=== PATIENT | male | born 1975 | race Caucasian/White ===

== ENCOUNTER 2018-02-05 14:51 | Inpatient (IN) | payer OTHER ==
[~2018-02-05] VITALS: Ht 167.6 cm; Wt 55.8 kg
[2018-02-05 16:04] LABS: BASO % 0.2 % (0.0-2.0); EOS % 0.5 % (0-4.0); GRAN # 2.3 (1.4-6.5); HEMOGLOBIN 10.7 g/dl (13.5-18.0); LYMPH # 0.8 (1.2-3.4); MEAN CELL VOLUME 99 fl (80.0-100.0); MEAN CORPUSCULAR HEMOGLOBIN 34 pg (27.0-31.0); MEAN CORPUSCULAR HGB CONC 34 g/dl (33.0-37.0); MONO % 23.6 % (1.7-9.3); PLATELET COUNT 295 K/mm3 (130-400); RED BLOOD COUNT 3.16 M/mm3 (4.20-5.60); REDCELL DISTRIBUTION WIDTH-CV 12.1 % (11.5-14.5)
[2018-02-05 16:05] LABS: HEMATOCRIT 31.4 % (42.0-52.0)
[2018-02-05 16:16] LABS: ALANINE AMINOTRANSFERASE 75 U/L (21-72); ALBUMIN 3.8 gm/dL (3.5-5.0); ALKALINE PHOSPHATASE 102 U/L (50-136); ANION GAP 6 mmol/L (7-16); AST,SGOT 114 U/L (15-37); BILIRUBIN,TOTAL 0.9 mg/dL (0.0-1.0); BLOOD UREA NITROGEN 11 mg/dL (9-20); CALCIUM 9.9 mg/dL (8.4-10.2); CARBON DIOXIDE 33 mmol/L (22-30); CHLORIDE 98 mmol/L (98-107); CREATININE, serum 0.53 mg/dL (0.66-1.25); GLUCOSE 101 mg/dL (74-106); SODIUM 137 mmol/L (137-145); TOTAL PROTEIN 7.4 gm/dL (6.4-8.2)
[2018-02-05 16:17] LABS: ALCOHOL(ethanol),MEDICAL < 10 mg/dL
[2018-02-05 17:14] LABS: COLLECTION METHOD CLEAN CATCH
[2018-02-05 17:24] LABS: MUCOUS Present /lpf; PH 5 (5-8); SQUAMOUS EPITHELIAL 0-2 /hpf; URINE APPEARANCE Hazy; URINE BACTERIA None Seen /hpf; URINE BILIRUBIN Positive (NEGATIVE); URINE BLOOD Negative (NEGATIVE); URINE COLOR Amber; URINE GLUCOSE Negative (NEGATIVE); URINE KETONE Trace (NEGATIVE); URINE LEUKOCYTE ESTERASE Negative (NEGATIVE); URINE NITRATE Negative (NEGATIVE); URINE PROTEIN(semi-quant) 1+ (NEGATIVE); URINE UROBILINOGEN >=4.0 mg/dL (NEGATIVE)
[2018-02-05 17:45] LABS: TRICYCLIC ANTIDEPRESS URINE NEGATIVE
[2018-02-05 19:59] VITALS: BP 122/82; PULSE 75; TEMP 99.1
[2018-02-05 21:14] LABS: ALBUMIN 3.5 gm/dL (3.5-5.0); BILIRUBIN UNCONJUGATED 0.4 mg/dL (0.0-1.1); BILIRUBIN,DIRECT 0.3 mg/dL (0.0-0.4); BILIRUBIN,TOTAL 0.6 mg/dL (0.0-1.0); TOTAL PROTEIN 6.9 gm/dL (6.4-8.2)
[2018-02-05 21:17] LABS: PROTHROMBIN TIME 10.8 SECONDS (9.7-12.8)
[2018-02-05 21:20] LABS: PARTIAL THROMBOPLASTIN TIME 27.6 SECONDS (26.0-37.0)
[2018-02-05 22:57] LABS: HIV 1/2 Antibodies Non-Reactive; HIV-1p24 Antigen Non-Reactive
[2018-02-06 03:37] VITALS: BP 116/76; PULSE 82; TEMP 98.7
[2018-02-06 06:20] LABS: MEAN CELL VOLUME 102 fl (80.0-100.0); MEAN CORPUSCULAR HGB CONC 34 g/dl (33.0-37.0); MEAN PLATELET VOLUME 10.1 fl (7.4-10.4); PLATELET COUNT 297 K/mm3 (130-400); RED BLOOD COUNT 2.56 M/mm3 (4.20-5.60); REDCELL DISTRIBUTION WIDTH-CV 12.5 % (11.5-14.5); RETIC % 3.8 % (0.5-3.52)
[2018-02-06 06:22] LABS: ALBUMIN 2.8 gm/dL (3.5-5.0); BILIRUBIN,TOTAL 0.5 mg/dL (0.0-1.0); CALCIUM 8.7 mg/dL (8.4-10.2); CREATININE, serum 0.52 mg/dL (0.66-1.25); POTASSIUM 3.2 mmol/L (3.4-5.0); TOTAL PROTEIN 5.8 gm/dL (6.4-8.2)
[2018-02-06 06:26] LABS: HEMATOCRIT 26.2 % (42.0-52.0); HEMOGLOBIN 8.8 g/dl (13.5-18.0); MEAN CORPUSCULAR HEMOGLOBIN 34 pg (27.0-31.0)
[2018-02-06 07:08] LABS: BAND 7 % (0-10); EOSINOPHIL 1 % (0-4); LYMPHOCYTE 36 % (20.0-51.0); NEUTROPHILS 46 % (42.0-75.2); PLATELET ESTIMATE NORMAL (NORMAL)
[2018-02-06 07:28] VITALS: BP 124/85; PULSE 87; TEMP 99.1
[2018-02-06 13:13] VITALS: BP 131/83; PULSE 62; TEMP 99.5
[2018-02-06 15:36] LABS: GLUCOSE,CSF 62 mg/dL (40-70); TOTAL PROTEIN,CSF 46 mg/dL (15-45)
[2018-02-06 15:50] VITALS: BP 152/90; PULSE 85; TEMP 98.6
[2018-02-06 16:03] LABS: CSF APPEARANCE CLEAR; CSF COLOR COLORLESS; CSF MONONUCLEAR 40 % (70-100); CSF POLYMORPHONUCLEAR 60 % (0-6); CSF RBC 156 /mm3 (0-0)
[2018-02-06 21:37] VITALS: BP 119/68; PULSE 79; TEMP 98.5
[2018-02-07] VITALS (7 sets, daily range): BP systolic 114–140; BP diastolic 73–82; PULSE 66–93; TEMP 94.2–98.9
[2018-02-07 06:59] LABS: RED BLOOD COUNT 2.63 M/mm3 (4.20-5.60)
[2018-02-07 07:00] LABS: BASO % 0.6 % (0.0-2.0); EOS # 0.1 (0.0-0.7); EOS % 1.2 % (0-4.0); GRAN # 2.2 (1.4-6.5); GRAN % 45.9 % (42.2-75.2); LYMPH # 1.3 (1.2-3.4); LYMPH % 26.9 % (20.0-51.0); MEAN CELL VOLUME 104 fl (80.0-100.0); MEAN CORPUSCULAR HGB CONC 33 g/dl (33.0-37.0); MEAN PLATELET VOLUME 9.5 fl (7.4-10.4); MONO # 1.2 (0.1-0.6); MONO % 24.8 % (1.7-9.3); PLATELET COUNT 361 K/mm3 (130-400); REDCELL DISTRIBUTION WIDTH-CV 13.2 % (11.5-14.5)
[2018-02-07 07:04] LABS: HEMATOCRIT 27.4 % (42.0-52.0); MEAN CORPUSCULAR HEMOGLOBIN 34 pg (27.0-31.0)
[2018-02-07 07:17] LABS: ALBUMIN 2.9 gm/dL (3.5-5.0); BILIRUBIN,TOTAL 0.3 mg/dL (0.0-1.0); CALCIUM 8.2 mg/dL (8.4-10.2); CREATININE, serum 0.55 mg/dL (0.66-1.25); MAGNESIUM 1.8 mg/dL (1.6-2.3); POTASSIUM 4.3 mmol/L (3.4-5.0); TOTAL PROTEIN 5.8 gm/dL (6.4-8.2)
[2018-02-07 09:56] LABS: FOLATE (FOLIC ACID) >20.0 ng/mL (7.0-31.4)
[2018-02-08 04:13] VITALS: BP 135/80; PULSE 60; TEMP 98.6
[2018-02-08 06:26] LABS: BASO % 0.6 % (0.0-2.0); EOS # 0.1 (0.0-0.7); EOS % 1.1 % (0-4.0); GRAN # 2.9 (1.4-6.5); GRAN % 52.8 % (42.2-75.2); LYMPH # 1.2 (1.2-3.4); MEAN CELL VOLUME 106 fl (80.0-100.0); MEAN CORPUSCULAR HGB CONC 32 g/dl (33.0-37.0); MEAN PLATELET VOLUME 9.4 fl (7.4-10.4); MONO # 1.2 (0.1-0.6); MONO % 22.4 % (1.7-9.3); PLATELET COUNT 387 K/mm3 (130-400); RED BLOOD COUNT 2.69 M/mm3 (4.20-5.60); REDCELL DISTRIBUTION WIDTH-CV 13.8 % (11.5-14.5)
[2018-02-08 06:30] LABS: CREATININE, serum 0.62 mg/dL (0.66-1.25); POTASSIUM 4.3 mmol/L (3.4-5.0)
[2018-02-08 06:42] LABS: HEMATOCRIT 28.4 % (42.0-52.0); HEMOGLOBIN 9.2 g/dl (13.5-18.0); MEAN CORPUSCULAR HEMOGLOBIN 34 pg (27.0-31.0)
[2018-02-08] MEDS ORDERED: FOLIC ACID 11 MG/TA1 PO (07:39)
[2018-02-08] MEDS ORDERED: THIAMINE 1100 MG/TAB PO (07:39)
[2018-02-08] MEDS ORDERED: MULTI VITAMINS1 TAB PO (07:40)
[2018-02-08 07:56] VITALS: BP 124/74; PULSE 66; TEMP 98.7
[2018-02-08] MEDS ORDERED: PENICILLIN IV (09:50)
== END 2018-02-08 12:06 | disposition swing bed (61) | DRG 56 ==
LOC: COL.ER 14:51 → MEDICAL 17:56
PROVIDERS: Family Medicine; Hospitalist; Nurse Practitioner; Physician Assistant
PROC: 009U3ZX Drainage of Spinal Canal, Percutaneous Approach, Diagnostic (ICD-10-PCS; principal; 2018-02-06)
PROC: B01B1ZZ Fluoroscopy of Spinal Cord using Low Osmolar Contrast (ICD-10-PCS; 2018-02-06)
DX: A52.3 Neurosyphilis, unspecified (principal); E43 Unspecified severe protein-calorie malnutrition; R74.0 Nonspecific elevation of levels of transaminase and lactic acid dehydrogenase [LDH]; E87.6 Hypokalemia; F10.20 Alcohol dependence, uncomplicated; G62.1 Alcoholic polyneuropathy; E83.42 Hypomagnesemia; D53.9 Nutritional anemia, unspecified; R53.81 Other malaise; M51.26 Other intervertebral disc displacement, lumbar region; Z91.81 History of falling; D72.819 Decreased white blood cell count, unspecified; M48.061 Spinal stenosis, lumbar region without neurogenic claudication; Z72.51 High risk heterosexual behavior
CPT/HCPCS: 86780; 99223-AI; 99233-AI; 99239; A9585; G8978-GP; G8979-GP; G8987-GO; G8988-GO; J1644; J2540; J3411; J3475; J7030; J7040; J7120

== ENCOUNTER → 2018-02-25 | Outpatient (REF) ==
[~2018-02-25] MED LIST: FOLIC ACID 11 MG/TA1 PO; MULTI VITAMINS1 TAB PO; PENICILLIN IV; THIAMINE 1100 MG/TAB PO
== END ==
LOC: ZLAB.WCH 08:33
DX: Z01.89 Encounter for other specified special examinations (principal)

== ENCOUNTER → 2018-04-16 | Outpatient (CLI) | payer OTHER ==
[2018-04-16 13:46] LABS: HEMATOCRIT 37.7 % (42.0-52.0); HEMOGLOBIN 12.7 g/dl (13.5-18.0); MEAN CELL VOLUME 94 fl (80.0-100.0); MEAN CORPUSCULAR HEMOGLOBIN 32 pg (27.0-31.0); MEAN CORPUSCULAR HGB CONC 34 g/dl (33.0-37.0); MEAN PLATELET VOLUME 9.3 fl (7.4-10.4); PLATELET COUNT 248 K/mm3 (130-400); REDCELL DISTRIBUTION WIDTH-CV 12.2 % (11.5-14.5)
[2018-04-16 13:58] LABS: BILIRUBIN,TOTAL 0.2 mg/dL (0.0-1.0); CALCIUM 9.1 mg/dL (8.4-10.2); CREATININE, serum 0.76 mg/dL (0.66-1.25); POTASSIUM 4.5 mmol/L (3.4-5.0); TOTAL PROTEIN 7.4 gm/dL (6.4-8.2)
== END ==
LOC: COL.LAB 13:13
PROVIDERS: Internal Medicine
DX: E46 Unspecified protein-calorie malnutrition (principal); A53.9 Syphilis, unspecified

== ENCOUNTER 2018-04-27 13:52 | Inpatient (IN) | payer OTHER ==
[~2018-04-27] VITALS: Ht 182.9 cm; Wt 64.7 kg
[2018-04-27 14:27] LABS: BASO % 0.1 % (0.0-2.0); EOS % 0.1 % (0-4.0); GRAN # 12.1 (1.4-6.5); GRAN % 87.3 % (42.2-75.2); HEMATOCRIT 47.8 % (42.0-52.0); HEMOGLOBIN 16.1 g/dl (13.5-18.0); LYMPH # 0.6 (1.2-3.4); LYMPH % 4.3 % (20.0-51.0); MEAN CELL VOLUME 92 fl (80.0-100.0); MEAN CORPUSCULAR HEMOGLOBIN 31 pg (27.0-31.0); MEAN CORPUSCULAR HGB CONC 34 g/dl (33.0-37.0); MEAN PLATELET VOLUME 9.4 fl (7.4-10.4); MONO # 1.1 (0.1-0.6); MONO % 7.9 % (1.7-9.3); PLATELET COUNT 215 K/mm3 (130-400); RED BLOOD COUNT 5.19 M/mm3 (4.20-5.60); REDCELL DISTRIBUTION WIDTH-CV 12.6 % (11.5-14.5)
[2018-04-27 14:38] LABS: ALANINE AMINOTRANSFERASE 75 U/L (21-72); ALBUMIN 5.4 gm/dL (3.5-5.0); ALKALINE PHOSPHATASE 108 U/L (50-136); ANION GAP 34 mmol/L (7-16); AST,SGOT 84 U/L (15-37); BILIRUBIN,TOTAL 1.7 mg/dL (0.0-1.0); BLOOD UREA NITROGEN 40 mg/dL (9-20); CALCIUM 10.4 mg/dL (8.4-10.2); CARBON DIOXIDE 18 mmol/L (22-30); CREATININE, serum 2.19 mg/dL (0.66-1.25); GLUCOSE 160 mg/dL (74-106); LIPASE 109 U/L (23-300); POTASSIUM 4.7 mmol/L (3.4-5.0); SODIUM 138 mmol/L (137-145); TOTAL PROTEIN 10.4 gm/dL (6.4-8.2)
[2018-04-27 14:54] LABS: TROPONIN-I < 0.012 ng/mL (0.000-0.034)
[2018-04-27 15:01] LABS: INR 0.9 (0.8-3.0); PROTHROMBIN TIME 9.8 SECONDS (9.7-12.8)
[2018-04-27 15:08] LABS: CHLORIDE 87 mmol/L (98-107)
[2018-04-27 16:27] LABS: MAGNESIUM 1.7 mg/dL (1.6-2.3); PHOSPHOROUS 3.4 mg/dL (2.5-4.5)
[2018-04-27 16:33] LABS: ARTERIAL BLD GAS O2 SATURATION 95.6 % (92-100); ARTERIAL BLD GAS TCO2 CT 21.4; ARTERIAL BLOOD GAS BASE EXCESS -3.3 (-2-2); ARTERIAL BLOOD GAS HCO3 20.4 meq/L (22-26); ARTERIAL BLOOD GAS PCO2 32.8 mmHg (35-45); ARTERIAL BLOOD GAS PO2 82.7 mmHg (80-100); ARTERIAL BLOOD GAS pH 7.41 (7.35-7.45)
--- NOTE | 2018-04-27 17:21 | NUR ---
This patient arrived to the room at this time. Obvious tremor present and the patient stated this comes and goes during the day.
[2018-04-27 17:27] VITALS: BP 140/91; PULSE 90; TEMP 99.5
--- NOTE | 2018-04-27 19:45 | NUR ---
RECEIVED CALL FROM [email or web address] ADVISES THAT PT'S HR 152. CHECKED ON PT AND HE WAS SITTING UP. CALLED NAGA GAMBOA AND SHE ADVISED TO MONITOR PT. HR AT THIS TIME IS 120.
[2018-04-27 19:46] VITALS: BP 140/90; PULSE 127; TEMP 97.9
--- NOTE | 2018-04-27 21:25 | NUR ---
PT HAS AWAKEN AND GOTTEN UP TO GO TO THE BATHROOM, BUT HEART GOES UP. PT STILL TACHICARDIC WHILE SLEEPING. PT DENIES ANY ANXIETY. SPEECH VERY SOFT AND HARD TO UNDERSTAND. NO NEEDS AT THIS TIME, CALL LIGHT WITHIN REACH.
[2018-04-27 21:47] VITALS: BP 132/88; PULSE 108; TEMP 99.5
[2018-04-27 23:43] VITALS: BP 150/90; PULSE 124; TEMP 98.7
[2018-04-28] VITALS (10 sets, daily range): BP systolic 117–145; BP diastolic 63–98; PULSE 80–123; TEMP 98.2–99.8
--- NOTE | 2018-04-28 00:17 | NUR ---
PT ADVISES NO PAIN OR DISCOMFORT. PT ASSISTED WITH USING URINAL. NO FURTHER NEEDS AT THIS TIME. CALL LIGHT WITHIN REACH.
[2018-04-28 00:38] LABS: COLLECTION METHOD CLEAN CATCH
[2018-04-28 00:52] LABS: PH 5 (5-8); SQUAMOUS EPITHELIAL None Seen /hpf; URINE APPEARANCE Clear; URINE BACTERIA None Seen /hpf; URINE BILIRUBIN Negative (NEGATIVE); URINE BLOOD Negative (NEGATIVE); URINE COLOR Yellow; URINE GLUCOSE Negative (NEGATIVE); URINE KETONE 2+ (NEGATIVE); URINE LEUKOCYTE ESTERASE Negative (NEGATIVE); URINE NITRATE Negative (NEGATIVE); URINE PROTEIN(semi-quant) 1+ (NEGATIVE); URINE RBC 0-2 /hpf; URINE UROBILINOGEN Negative (NEGATIVE)
--- NOTE | 2018-04-28 04:18 | NUR ---
PT SLEEPING/RESTING HOB ELEVATED TO 45 DEGREE ANGLE. PT SOFTLY SNORING, RESP EVEN AND UNLABORED RR18, NO S/S OF PAIN OR DISCOMFORT NOTED. PT STILL SCORING FOR DETOX, ATIVAN GIVEN. NO NEEDS AT THIS TIME, CALL LIGHT WITHIN REACH. DID GIVE APPLE JUICE AROUND 0215.
--- NOTE | 2018-04-28 06:24 | NUR ---
PT HAD AN INCONTINENT EPISODE WERE THE BED WAS A COMPLETE BED CHANGE AND PT HAD TO CHANGE CLOTHING. PT BACK IN BED WITH HOB ELEVATED TO 45 DEGREE ANGLE. PT RESTING WITH EYES CLOSE AND HE DOES OPEN HIS EYES TO ANSWER QUESTIONS. PT SPEAKS VERY SOFTLY, SO IT MAKES IT DIFFICULT TO UNDERSTAND WHAT HE SAYS. PT DENIES PAIN OR DISCOMFORT AT THIS TIME. ALSO HE DENIES ANY ANXIETY, BUT HAS BEEN SCORING THIS SHIFT BETWEEN AN 5 TO 6. HEART RATE STILL TACHICARDIC. NO NEEDS AT THIS TIME, CALL LIGHT WITHIN REACH.
[2018-04-28 07:23] LABS: BASO % 0.2 % (0.0-2.0); EOS % 0.1 % (0-4.0); GRAN # 8.9 (1.4-6.5); GRAN % 81.7 % (42.2-75.2); LYMPH # 0.8 (1.2-3.4); LYMPH % 7.4 % (20.0-51.0); MEAN CELL VOLUME 94 fl (80.0-100.0); MEAN CORPUSCULAR HGB CONC 33 g/dl (33.0-37.0); MEAN PLATELET VOLUME 9.8 fl (7.4-10.4); MONO # 1.1 (0.1-0.6); MONO % 10.2 % (1.7-9.3); PLATELET COUNT 139 K/mm3 (130-400); RED BLOOD COUNT 3.85 M/mm3 (4.20-5.60); REDCELL DISTRIBUTION WIDTH-CV 13.1 % (11.5-14.5)
[2018-04-28 07:30] LABS: CALCIUM 8.6 mg/dL (8.4-10.2); CREATININE, serum 0.99 mg/dL (0.66-1.25); MAGNESIUM 2.1 mg/dL (1.6-2.3); PHOSPHOROUS 2.1 mg/dL (2.5-4.5); POTASSIUM 3.8 mmol/L (3.4-5.0)
[2018-04-28 07:33] LABS: HEMATOCRIT 36.1 % (42.0-52.0); HEMOGLOBIN 11.8 g/dl (13.5-18.0); MEAN CORPUSCULAR HEMOGLOBIN 31 pg (27.0-31.0)
[2018-04-28 07:59] LABS: TSH w REFLEX 0.82 uIU/mL (0.465-4.680)
--- NOTE | 2018-04-28 09:45 | NUR ---
Patient sat up in bed independently to take medications. Took all pills at one time and did have some trouble swallowing them. Speaks to staff with soft voice, has to be asked to repeat himself. Offered assistance in ordering a breakfast tray and accepted help. Called dietary for general tray, was delivered and patient noted to be sitting with head of bed up eating independently. Call light is within reach.
--- NOTE | 2018-04-28 10:25 | NUR ---
Resting quitely throughout the morning. The call light is in place.
--- NOTE | 2018-04-28 10:58 | NUR ---
Assessment incomplete: Patient fell asleep during interview. Patient reports that [place] [address] and [place]. Patient reports that his emergency contacts are [employer] and Elma Hallman but denies knowing any contact information. Patient indicated that he uses [facility] on [address] for medications. Dues the use of any DME. Unknown PCP, patient indicated that he is Medicaid Pending, unknown for ALCP treatment or severity. SW will need to follow-up
--- NOTE | 2018-04-28 11:00 | NUR ---
The PICC line was removed per this nurse. No complications and the measurements remained the same as insertion date.
--- NOTE | 2018-04-28 16:23 | NUR ---
Patient has been resting quietly in bed this afternoon. Eyes are closed. Denies pain when asked. No needs verbalized. Does speak quietly and is difficult to hear. Has eaten some jello and drank some juice. Call light is within reach. Encouraged to call with any needs.
[2018-04-28 18:07] LABS: HEMOGLOBIN 11.8 g/dl (13.5-18.0)
[2018-04-28 18:09] LABS: HEMATOCRIT 36.3 % (42.0-52.0)
[2018-04-29] VITALS (12 sets, daily range): BP systolic 115–151; BP diastolic 71–94; PULSE 64–82; TEMP 98.2–99.8
--- NOTE | 2018-04-29 04:50 | NUR ---
PT VITALS HAVE REMAINED WNL THIS SHIFT. NO ATIVAN NEEDED FOR CIAWA PROTOCOL THIS SHIFT. PT HAS NOTED TREMORS, UNSTEADY ON FEET. HEMOCULT STOOL SAMPLE OBTAINTED, WAS NEGITIVE. REMIANS HAVING LOOSE STOOLS IN BROWN COLOR. HAS SOME GASTRIC UPSET AT HS, ADMINSTERED PRN MAALOX. PT HAD NO FURTHER COMPLAINTS. NO NOTED N/V OR PAIN THIS SHIFT.
[2018-04-29 05:58] LABS: BASO % 0.4 % (0.0-2.0); EOS % 0.6 % (0-4.0); GRAN # 3.4 (1.4-6.5); GRAN % 65.3 % (42.2-75.2); HEMOGLOBIN 11.5 g/dl (13.5-18.0); LYMPH # 1.1 (1.2-3.4); LYMPH % 21.6 % (20.0-51.0); MEAN CELL VOLUME 96 fl (80.0-100.0); MEAN CORPUSCULAR HEMOGLOBIN 31 pg (27.0-31.0); MEAN CORPUSCULAR HGB CONC 33 g/dl (33.0-37.0); MEAN PLATELET VOLUME 10.1 fl (7.4-10.4); MONO # 0.6 (0.1-0.6); MONO % 11.5 % (1.7-9.3); PLATELET COUNT 119 K/mm3 (130-400); REDCELL DISTRIBUTION WIDTH-CV 12.7 % (11.5-14.5)
[2018-04-29 06:06] LABS: HEMATOCRIT 35.4 % (42.0-52.0)
[2018-04-29 06:20] LABS: CALCIUM 8.6 mg/dL (8.4-10.2); CREATININE, serum 0.71 mg/dL (0.66-1.25); POTASSIUM 3.4 mmol/L (3.4-5.0)
--- NOTE | 2018-04-29 08:15 | NUR ---
Assessment complete. Pt is AXO X3, states he has pain in his ABD rated at a 2/10. Breathing is even and unlabored on room air. Tele on. LA infusing, remains free of complications, and is CDI. Pt is up working with PT at this time and he denies further needs. Call light within reach, will continue to monitor.
--- NOTE | 2018-04-29 18:40 | NUR ---
Pt has been resting on and off throughout the day. Has had constant pain in his ADB/chest. Pt is attempting to eat more for supper but has not had much of an appetite during the day. Pt is resting quielty in the bed at this time and he denies further needs. Call light within reach.
--- NOTE | 2018-04-29 19:26 | NUR ---
Report given to CHARLY Leavitt.
--- NOTE | 2018-04-29 20:57 | NUR ---
Patient resting in bed, assessment completed, VSS. Denies pain. Uses a walker to ambulate. Currently on detox protocol, only has been scoring with elevated blood pressure and a slightly elevated temperature.
[2018-04-30] VITALS (7 sets, daily range): BP systolic 128–157; BP diastolic 79–95; PULSE 61–73; TEMP 98.1–99.2
--- NOTE | 2018-04-30 05:09 | NUR ---
Patient slept on/off last night, VSS. Scoring 2-3 on ETOH detox protocol. Denies pain. No further needs at this time.
[2018-04-30 06:30] LABS: BASO % 0.4 % (0.0-2.0); EOS # 0.1 (0.0-0.7); EOS % 2.2 % (0-4.0); GRAN # 2.9 (1.4-6.5); GRAN % 61.3 % (42.2-75.2); HEMATOCRIT 35.8 % (42.0-52.0); HEMOGLOBIN 11.8 g/dl (13.5-18.0); LYMPH % 21.7 % (20.0-51.0); MEAN CELL VOLUME 96 fl (80.0-100.0); MEAN CORPUSCULAR HEMOGLOBIN 32 pg (27.0-31.0); MEAN CORPUSCULAR HGB CONC 33 g/dl (33.0-37.0); MEAN PLATELET VOLUME 10.3 fl (7.4-10.4); MONO # 0.7 (0.1-0.6); MONO % 14.2 % (1.7-9.3); PLATELET COUNT 122 K/mm3 (130-400); RED BLOOD COUNT 3.75 M/mm3 (4.20-5.60); REDCELL DISTRIBUTION WIDTH-CV 12.1 % (11.5-14.5)
[2018-04-30 06:39] LABS: CALCIUM 9.2 mg/dL (8.4-10.2); CREATININE, serum 0.7 mg/dL (0.66-1.25); MAGNESIUM 1.8 mg/dL (1.6-2.3); PHOSPHOROUS 2.7 mg/dL (2.5-4.5); POTASSIUM 3.3 mmol/L (3.4-5.0)
--- NOTE | 2018-04-30 09:30 | NUR ---
Up with therapy this morning, ambulating the halls with a walker. Some unsteadiness present but the patient is much better than admission. No pain reported.
--- NOTE | 2018-04-30 09:50 | NUR ---
Patient is sitting up in recliner watching TV. No current pain complaints, does complain of nausea. Attempted to flush IV and site was leaking. Site changed from left AC to left hand. Catheter tip intact and hemostasis acheived. Patient stated all he really wants to do is be able to eat solid foods and have it "agree" with him. Has been in good spirits and joking with staff. Call light is within reach, bedside table and food is available on table.
--- NOTE | 2018-04-30 10:47 | NUR ---
Patient is dc home today. Dr talked with him about not drinking once he goes home as he has already detoxed. Patient is understanding.
[2018-04-30] MEDS ORDERED: FOLIC ACID 11 MG/TA1 PO (11:35)
[2018-04-30] MEDS ORDERED: K-PHOS ORIGINA500 MG PO (11:35)
[2018-04-30] MEDS ORDERED: ZOFRAN ODT4 MG PO (11:36)
[2018-04-30] MEDS ORDERED: THIAMINE 1100 MG/TAB PO (11:36)
[2018-04-30] MEDS ORDERED: DUO-KAPS1 CAP PO (11:36)
[2018-04-30] MEDS ORDERED: PROTONIX 40MG T40 MG PO (11:43)
--- NOTE | 2018-04-30 19:03 | NUR ---
Report given to CHARLY Leavitt to resume care.
--- NOTE | 2018-04-30 19:09 | NUR ---
The patient ate 100% of his soup, half of an ensure, 8 tator tots, and 4 oz of orange juice this afternoon. He did complain it was diffcult to complete the tator tots. Plan for NPO at midnight for EGD tomorrow.
--- NOTE | 2018-04-30 20:35 | NUR ---
Patient resting in bed watching TV. Assessment completed, denies pain, VSS. Drank about 3/4 of nutritional supplement and had tater tots for dinner. Denies nausea at this time. No further needs at this time.
[2018-05-01] VITALS (9 sets, daily range): BP systolic 126–148; BP diastolic 81–92; PULSE 54–64; TEMP 98.1–100.5
--- NOTE | 2018-05-01 05:30 | NUR ---
Patient slept most of the night, no comlaints of pain, VSS. Scoring 1-2 on ETOh detox, mainly for elevated BP and slightly elevated temp.
--- NOTE | 2018-05-01 09:00 | NUR ---
Patient sitting up in bed, is dressed. Remains NPO for EGD proceudre later today. Did take medications with small sips of water. Took medications without difficulty, no cough noted. Voice is strong and clear. Does have questions regarding proceudre and "what they will be looking for." Patient denies pain. Has been observed walking with rolling walker in room independently, gait is steady. Has been using restroom independently.
--- NOTE | 2018-05-01 16:38 | NUR ---
Pt discharged at this time. LH INT discontinued with the catheter tip intact. Education provided and reviewed. Pt verbalizes understanding and all questions were answered. Pt escourted out via WC with tech. Hank
== END 2018-05-01 16:46 | disposition home or self-care (01) | DRG 896 ==
LOC: COL.ER 13:52 → MEDICAL 16:41
PROVIDERS: Emergency Medicine; Family Medicine; Physician Assistant; ADMIT Hospitalist
DX: F10.239 Alcohol dependence with withdrawal, unspecified (principal); E43 Unspecified severe protein-calorie malnutrition; N17.9 Acute kidney failure, unspecified; E87.4 Mixed disorder of acid-base balance; Z68.1 Body mass index [BMI] 19.9 or less, adult; R11.2 Nausea with vomiting, unspecified; E86.0 Dehydration; E87.8 Other disorders of electrolyte and fluid balance, not elsewhere classified; A51.5 Early syphilis, latent; K70.0 Alcoholic fatty liver; R53.81 Other malaise; D64.9 Anemia, unspecified; E83.39 Other disorders of phosphorus metabolism; K21.0 Gastro-esophageal reflux disease with esophagitis; R13.10 Dysphagia, unspecified; E87.6 Hypokalemia
CPT/HCPCS: 99222-AI; 99232-AI; 99239; A4216; C9113; J0696; J2060; J2354; J2405; J2550; J2704; J3411; J3475; J7030; J7050; J7120; Q9967

== ENCOUNTER 2018-06-25 00:20 | Inpatient (IN) | payer OTHER ==
[~2018-06-25] VITALS: Ht 182.9 cm; Wt 61.0 kg
[2018-06-25] VITALS (10 sets, daily range): BP systolic 115–161; BP diastolic 71–89; PULSE 89–122; TEMP 97.5–100.1
[~2018-06-25 00:20] MED LIST changes: +DUO-KAPS1 CAP PO; +K-PHOS ORIGINA500 MG PO; +PROTONIX 40MG T40 MG PO; +ZOFRAN ODT4 MG PO
[2018-06-25 00:35] LABS: BASO % 0.1 % (0.0-2.0); GRAN # 7.8 (1.4-6.5); GRAN % 88.4 % (42.2-75.2); HEMATOCRIT 44.1 % (42.0-52.0); HEMOGLOBIN 14.9 g/dl (13.5-18.0); LYMPH # 0.3 (1.2-3.4); LYMPH % 3.7 % (20.0-51.0); MEAN CELL VOLUME 91 fl (80.0-100.0); MEAN CORPUSCULAR HEMOGLOBIN 31 pg (27.0-31.0); MEAN CORPUSCULAR HGB CONC 34 g/dl (33.0-37.0); MEAN PLATELET VOLUME 10.6 fl (7.4-10.4); MONO # 0.6 (0.1-0.6); MONO % 7.2 % (1.7-9.3); PLATELET COUNT 100 K/mm3 (130-400); RED BLOOD COUNT 4.84 M/mm3 (4.20-5.60); REDCELL DISTRIBUTION WIDTH-CV 14.3 % (11.5-14.5)
[2018-06-25 00:46] LABS: ALBUMIN 5.1 gm/dL (3.5-5.0); BILIRUBIN,TOTAL 2.7 mg/dL (0.0-1.0); CALCIUM 9.6 mg/dL (8.4-10.2); CREATININE, serum 2.51 mg/dL (0.66-1.25); POTASSIUM 4.4 mmol/L (3.4-5.0); TOTAL PROTEIN 9.7 gm/dL (6.4-8.2)
[2018-06-25 01:38] LABS: ARTERIAL BLD GAS O2 SATURATION 95.7 % (92-100); ARTERIAL BLD GAS TCO2 CT 18.4; ARTERIAL BLOOD GAS BASE EXCESS -5.8 (-2-2); ARTERIAL BLOOD GAS HCO3 17.6 meq/L (22-26); ARTERIAL BLOOD GAS PCO2 28.4 mmHg (35-45); ARTERIAL BLOOD GAS PO2 88.4 mmHg (80-100); ARTERIAL BLOOD GAS pH 7.41 (7.35-7.45)
--- NOTE | 2018-06-25 04:00 | NUR ---
PT ADMITTED TO MEDICAL FLOOD. BANANA BAG OF FLUIDS INFUISNG WITHOUT ISSUES. PT HAS NOTED C/O ABD PAIN AND STATED THAT IT HAS RESOLVED SOME SINCE FIRST COMING TO THE ED SINCE HE HAD RECIEVED MEDICATIONS DOWN THERE. PT DOES HAS SOME C/O NAUSEA AT THIS TIME WELL. SERENE GAMBOA NOTIFIED WELL. NO OTHER ISSUES OR CONSERNS VOICED AT THIS TIME.
[2018-06-25 05:51] LABS: CALCIUM 8.6 mg/dL (8.4-10.2); CREATININE, serum 1.28 mg/dL (0.66-1.25); POTASSIUM 4.4 mmol/L (3.4-5.0)
--- NOTE | 2018-06-25 06:10 | NUR ---
PT WAS STARTED ON CIWA PROTOCOL THIS AM. PT SCORED 12 ON THIS, THIS NURSE ADMINISTERED ATIVAN PER PROTOCOL. PT WAS VISUALLY SHAKING, HAD NOTED ANXIOUSNESS, AND NAUSEA WITH SLIGHT VOMITTING AT THIS TIME. PT DID HAVE INCONTINANT VOID THIS AM AND WASNT AWARE OF BEING INCONTINANT, PT WAS ASSISTED TO GET CHANGED INTO CLEAN DRY CLOTHES. STATED THAT HIS ABD PAIN IS INTERMENTANT. THIS NURSE TOLD PT TO LET US KNOW IF HE NEEDS MEDICINE FOR NAUSEA. UA STILL NEEDED AT THIS TIME.
--- NOTE | 2018-06-25 06:14 | NUR ---
PT HAS UNCONTROLABLE SHAKING;THEREFORE EKG HAS A LOT OF ARTIFACT.
--- NOTE | 2018-06-25 07:10 | NUR ---
Received report, patient is noted to be resting in bed with eyes closed. Respirations are even and non labored, posture is relaxed. Call light is within reach.
--- NOTE | 2018-06-25 10:00 | NUR ---
Reported on to primary RN Carmen.
--- NOTE | 2018-06-25 10:15 | NUR ---
BP 138/79. P 108. T 99.1. Reported to primary nurse. Assessment completed. IV site patent in R forearm NS infusing @100mls/hr. Pt. up with assist in room. Pt. complained of 6/10 pain in throat. Reported to primary nurse. Pt. resting in bed with call light in reach.
--- NOTE | 2018-06-25 10:33 | NUR ---
SW and SW student met with the patient to discuss discharge plan. The patient lives in [place] with his younger brother, Cortes, and works at [employer]. He reports independence with ADLs and has a cane. The patient receives primary care at the [facility] in [place] and he receives his medications at the [facility]. The patient is self pay. Financial Counselor, Shalini, informed case management that she helped the patient apply for Medicaid during his last hospitalization stay. The patient is pending disability. The patient appeared sleepy and was unable to answer questions. SW to follow up with the patient at a later time.
[2018-06-25 12:04] LABS: CALCIUM 8.8 mg/dL (8.4-10.2); CREATININE, serum 1.02 mg/dL (0.66-1.25)
--- NOTE | 2018-06-25 13:20 | NUR ---
Jose assisted with full bed change and clothing change. Patient was incontinent of a large amount of urine in the bed. Does not follow direction well. Has to have lots of reminders from staff.
--- NOTE | 2018-06-25 17:38 | NUR ---
Patient is sitting up in bed drinking juice. Is noted to have visible tremors and difficulty holding cup. Needing a urine sample, pt asked if he would be able to provide a sample and he is mumbling stating there wouldnt be much. Will continue to try. Call light is within reach.
--- NOTE | 2018-06-25 19:34 | NUR ---
Patient sitting up in bed, was incontinent, total linen change. Patient repositioned, now sitting up with HOB raised and tray of dinner in front of patient. Alert and oriented, slightly mumbled speech, but is comprhensible. Scored a 4 on CIWA, given 1 mg of Ativan. Patient very unsteady on feet, this nurse did not think the patient was steady enough to get orthostatic BP's this evening. 2:1 assist. IVF infusing at 100 into right forearm.
--- NOTE | 2018-06-25 22:05 | NUR ---
This nurse asked pt if he felt able to try using the urinal to get a UA. Pt states he does not think there will be enough. This nurse will try again later.
[2018-06-26] VITALS (14 sets, daily range): BP systolic 118–147; BP diastolic 61–85; PULSE 71–137; TEMP 98–100.4
--- NOTE | 2018-06-26 05:25 | NUR ---
Pt slept on/off last night. Scoring 3-4's on CIWA protocol, scoring due to tremors and occassionally elevated pulse. Incontinent several times throughout the night. Patient has urinal at bedside, during vitals encouraging pt to use urinal, but pt states he never has to go then. Denies pain. Snacking occassionally throughout the night. NO further needs at htis time.
[2018-06-26 05:56] LABS: COLLECTION METHOD CLEAN CATCH
[2018-06-26 06:31] LABS: TRICYCLIC ANTIDEPRESS URINE NEGATIVE
[2018-06-26 06:32] LABS: MUCOUS Present /lpf; PH 6 (5-8); SQUAMOUS EPITHELIAL None Seen /hpf; URINE APPEARANCE Clear; URINE BACTERIA None Seen /hpf; URINE BILIRUBIN Negative (NEGATIVE); URINE BLOOD Negative (NEGATIVE); URINE COLOR Amber; URINE GLUCOSE Negative (NEGATIVE); URINE KETONE 1+ (NEGATIVE); URINE LEUKOCYTE ESTERASE Negative (NEGATIVE); URINE NITRATE Negative (NEGATIVE); URINE PROTEIN(semi-quant) Negative (NEGATIVE); URINE RBC 0-2 /hpf; URINE UROBILINOGEN >=4.0 mg/dL (NEGATIVE)
--- NOTE | 2018-06-26 06:45 | NUR ---
Reported on to primary RN Maritza.
[2018-06-26 06:46] LABS: BASO % 0.2 % (0.0-2.0); EOS % 0.2 % (0-4.0); GRAN # 3.6 (1.4-6.5); GRAN % 74.6 % (42.2-75.2); LYMPH # 0.8 (1.2-3.4); LYMPH % 15.9 % (20.0-51.0); MEAN CELL VOLUME 94 fl (80.0-100.0); MEAN CORPUSCULAR HGB CONC 33 g/dl (33.0-37.0); MEAN PLATELET VOLUME 11.7 fl (7.4-10.4); MONO # 0.4 (0.1-0.6); MONO % 8.1 % (1.7-9.3); PLATELET COUNT 64 K/mm3 (130-400); RED BLOOD COUNT 3.22 M/mm3 (4.20-5.60); REDCELL DISTRIBUTION WIDTH-CV 14.7 % (11.5-14.5)
[2018-06-26 06:56] LABS: ALBUMIN 3.3 gm/dL (3.5-5.0); BILIRUBIN,TOTAL 1.7 mg/dL (0.0-1.0); CALCIUM 8.4 mg/dL (8.4-10.2); CREATININE, serum 0.61 mg/dL (0.66-1.25); MAGNESIUM 2.7 mg/dL (1.6-2.3); PHOSPHOROUS 1.3 mg/dL (2.5-4.5); POTASSIUM 3.3 mmol/L (3.4-5.0); TOTAL PROTEIN 6.5 gm/dL (6.4-8.2)
[2018-06-26 07:00] LABS: HEMATOCRIT 30.2 % (42.0-52.0); MEAN CORPUSCULAR HEMOGLOBIN 31 pg (27.0-31.0)
--- NOTE | 2018-06-26 07:00 | NUR ---
BP 149/76. T 99.1. Reported to primary RN Maritza. Assessment completed and charted. IV site patent in R forearm NS infusing @100mls/hr. Tele leads in place. SCDs on BLE. Pt. up w/assist in room. Pt. complained of 6/10 pain in abdomen. Reported to primary nurse. Pt. resting in bed w/call light in reach eating breakfast w/bed alarm on.
--- NOTE | 2018-06-26 07:16 | NUR ---
Report given to CHARLY Salas. patient asleep.
--- NOTE | 2018-06-26 08:00 | NUR ---
Orthostatic BP completed and charted. Pt. incontinent of urine. AM cares provided. Pt. comfortable in bed w/call light in reach and bed alarm on.
--- NOTE | 2018-06-26 09:15 | NUR ---
Pt is A+Ox3, but speech adn movements are delayed and slightly slurred, he is mildly confused as evidenced by trying to drink from empty glass, his childhood story was incoherent, and occasional comments are inappropriate. Physical assessment completed. IV to RFA free of redness and swelling. His CIWA score is 4 due to elevated BP and HR primarily, tremors are present but imrpoved. No further needs
--- NOTE | 2018-06-26 10:00 | NUR ---
T 99.3. Reported to primary nurse. Pt. comfortable in bed w/call light in reach and bed alarm on.
[2018-06-26 10:45] LABS: INR 0.9 (0.8-3.0); PROTHROMBIN TIME 9.9 SECONDS (9.7-12.8)
--- NOTE | 2018-06-26 11:03 | NUR ---
RENITA and RENITA lo attended clinical rounds. The hospitalist discussed alcohol treatment for the patient's alcohol use. The patient reports that he plans to quit very slowly, but then he stated he would be open to inpatient treatment. RENITA and RENITA lo then followed up with the patient and discussed treatment options. The patient reports that he would be interested in inpatient treatment. RENITA explained to the patient on how he would need to contact [employer] for a screen and that RENITA could help assist him with that. RENITA provided the patient with [employer]'s phone number. RENITA also completed the initial intake with the patient. He reports that he receives his medications at the [facility] and that he has difficulties obtaining his meds. He states that he gets around by walking, biking, and skate boarding. He states that [facility] was able to help some with prescription assistance and that they referred him to [facility]. The patient reports that he plans to return home with his brother upon discharge. RENITA to continue to follow to ensure a safe discharge.
--- NOTE | 2018-06-26 11:33 | NUR ---
T 100.4. P 104. Reported to primary nurse Maritza PARKS. Pt. complains of 3/10 pain located in abdomen. Reported to primary nurse. Pt. comfortable in bed w/call light in reach and bed alarm on.
--- NOTE | 2018-06-26 11:34 | NUR ---
Reported off to primary nurse Maritza PARKS.
--- NOTE | 2018-06-26 16:46 | NUR ---
pT incontinent of urine, saturated a brief and bed, linen change and gown provided. Pt returned to bed, sleeping, call eve ivy reach, bed low, alarm on and seizure precations in place
--- NOTE | 2018-06-26 18:20 | NUR ---
Through shift pt has had little interest in food but sips at drinks and fruit without nausea. Temperature has been elevated and fluctuating, room kept cool and pt lightly covered to moderate his temp. Pt has been incontinent of urine in bed, also assisted with urinal to void dark yellow urine. IV site free of redness, swelling, fluids infusing. CIWA has been 3 past few scorings. No needs at this time, call ledy terrazas
--- NOTE | 2018-06-26 18:39 | NUR ---
Report given to Dagmar Trevino, pt resting, denies needs
--- NOTE | 2018-06-26 19:09 | NUR ---
Patient resting in bed, trying to get some sleep. Assessment completed- denies pain, no nausea/vomiting, lungs clear, abdominal suonds active. Snacking on food at bedside- fruit. No further needs at this time.
[2018-06-27] VITALS (13 sets, daily range): BP systolic 116–145; BP diastolic 72–90; PULSE 66–101; TEMP 97.8–99.9
--- NOTE | 2018-06-27 05:03 | NUR ---
Patient slept on/off last night. No c/o pain, nausea/vomiting. Socring 2-4's on CIWA protocol. Incontinent several times last night, linen change complete each time. No further needs at this time.
[2018-06-27 06:33] LABS: MEAN CELL VOLUME 95 fl (80.0-100.0); MEAN CORPUSCULAR HEMOGLOBIN 32 pg (27.0-31.0); MEAN CORPUSCULAR HGB CONC 33 g/dl (33.0-37.0); MEAN PLATELET VOLUME 11.9 fl (7.4-10.4); PLATELET COUNT 70 K/mm3 (130-400); RED BLOOD COUNT 3.15 M/mm3 (4.20-5.60); REDCELL DISTRIBUTION WIDTH-CV 14.3 % (11.5-14.5)
[2018-06-27 06:43] LABS: ALBUMIN 3.2 gm/dL (3.5-5.0); BILIRUBIN,TOTAL 1.7 mg/dL (0.0-1.0); CALCIUM 8.8 mg/dL (8.4-10.2); CREATININE, serum 0.55 mg/dL (0.66-1.25); MAGNESIUM 2.1 mg/dL (1.6-2.3); PHOSPHOROUS 3.5 mg/dL (2.5-4.5); POTASSIUM 3.2 mmol/L (3.4-5.0); TOTAL PROTEIN 6.2 gm/dL (6.4-8.2)
[2018-06-27 06:44] LABS: INR 0.9 (0.8-3.0); PROTHROMBIN TIME 9.9 SECONDS (9.7-12.8)
--- NOTE | 2018-06-27 06:48 | NUR ---
Report given to CHARLY Salas. Patient asleep in bed
[2018-06-27 07:18] LABS: BAND 23 % (0-10); BASOPHIL 1 % (0-2); EOSINOPHIL 1 % (0-4); LYMPHOCYTE 18 % (20.0-51.0); NEUTROPHILS 52 % (42.0-75.2); PLATELET ESTIMATE DECREASED (NORMAL)
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
--- NOTE | 2018-06-27 13:41 | NUR ---
Reported off to CHARLY Salas at [id number]
--- NOTE | 2018-06-27 13:43 | NUR ---
Primary nurse was assisted with [id number] patient care by [employer] student Holli Villalpando and [employer] instructor Mirian Young RN-.
--- NOTE | 2018-06-27 16:43 | NUR ---
RENITA and SW student met with the patient to discuss the hospitalist's recommendation of post-acute rehab. The patient reports that he would be agreeable to rehab. RENITA informed the patient that we would need to look at facilities outside of the [facility] and send referrals to them. The patient reports that he would prefer [facility] or somewhere close, but is agreeable for SW to send referrals to facilities in other [facility]. RENITA presented and explained the patient choice form to the patient. The patient verbalized understanding, signed, and he was provided a copy. At this time, RENITA has faxed a referral to [facility], [facility], and [facility]. Aan at [facility] reports that they are unable to accept the patient. SW awaiting the screenings from the other facilities.
--- NOTE | 2018-06-27 17:43 | NUR ---
Through shift pt has scored 1-2 on CIWA today. He is more lucid and interactive, continues to have conversation and activity delay. INT free of redness, swelling. PT walked to bathroom with walker today, unsteady with standby assist. Pt off tele per orders, no further needs. slept much of day. Call light in reach. Bed alarm on and seizure precs in place
--- NOTE | 2018-06-27 19:01 | NUR ---
Report given to Dagmar PARKS, pt denies needs, resting in bed, two shakes in fridge for him later. call ledy terrazas
--- NOTE | 2018-06-27 19:20 | NUR ---
Patient sitting up in bed, states he just woke up and wet the bed. Complete linen change completed. Evening medications administered. Patient also given strawberry shake. Assessment completed, denies pain. IV to right forearm flushed, no redness/edema. LUngs clear, abdominal sounds active. No further needs at this time.
[2018-06-28] VITALS (14 sets, daily range): BP systolic 87–118; BP diastolic 58–77; PULSE 69–140; TEMP 98.3–99.8
--- NOTE | 2018-06-28 04:44 | NUR ---
New IV started on pt, old IV discontinued due to expiring after 3 days
--- NOTE | 2018-06-28 05:11 | NUR ---
Pt slept most of the night, scoring 1-3's on CIWA. Environmental control to keep temepratures down. New IV placed this am. No needs at this time.
[2018-06-28 06:21] LABS: BASO % 0.4 % (0.0-2.0); EOS # 0.1 (0.0-0.7); GRAN # 2.8 (1.4-6.5); GRAN % 59.4 % (42.2-75.2); HEMATOCRIT 31.1 % (42.0-52.0); HEMOGLOBIN 10.1 g/dl (13.5-18.0); LYMPH % 21.3 % (20.0-51.0); MEAN CELL VOLUME 96 fl (80.0-100.0); MEAN CORPUSCULAR HEMOGLOBIN 31 pg (27.0-31.0); MEAN CORPUSCULAR HGB CONC 33 g/dl (33.0-37.0); MEAN PLATELET VOLUME 11.4 fl (7.4-10.4); MONO # 0.7 (0.1-0.6); MONO % 15.5 % (1.7-9.3); PLATELET COUNT 142 K/mm3 (130-400); RED BLOOD COUNT 3.23 M/mm3 (4.20-5.60); REDCELL DISTRIBUTION WIDTH-CV 13.9 % (11.5-14.5)
[2018-06-28 06:22] LABS: CALCIUM 9.6 mg/dL (8.4-10.2); CREATININE, serum 0.57 mg/dL (0.66-1.25); MAGNESIUM 1.9 mg/dL (1.6-2.3); POTASSIUM 4.4 mmol/L (3.4-5.0)
--- NOTE | 2018-06-28 07:08 | NUR ---
Report given to CHARLY Warren. Patient resting in bed. Is anxious about the plan for the day. Reassured doctors would be in to talk with him this morning.
--- NOTE | 2018-06-28 08:45 | NUR ---
Received report from Kelvin PARKS, patient is noted to be resting in bed on left side with covers over his head. Respirations are noted to be even and non labored. Bedrails are covered for seizure precaution. Shows no signs of pain. Call light is within reach.
--- NOTE | 2018-06-28 11:51 | NUR ---
SW contacted and faxed a referral to [facility].
--- NOTE | 2018-06-28 12:32 | NUR ---
Pt refused to order lunch at this time. Apple juice, sprite and a banana at this time.
--- NOTE | 2018-06-28 13:29 | NUR ---
Report given to CHARLY Morales at this time.
--- NOTE | 2018-06-28 13:46 | NUR ---
Primary nurse was assisted with [phone] patient care by [employer] student Holli Villalpando and [employer] instructor Mirian Young RN-.
--- NOTE | 2018-06-28 14:45 | NUR ---
Li, with [facility], contacted RENITA to inform that their social work assistant plans to come to the hospital today to screen the patient. RENITA informed the patient and he is agreeable to this. RENITA also faxed the patient's Medicaid application to [employer]. RENITA to continue to follow.
--- NOTE | 2018-06-28 16:17 | NUR ---
Yordy, at [facility], reports that they are unable to accept the patient.
--- NOTE | 2018-06-28 16:25 | NUR ---
RENITA contacted and faxed a referral to Pastora at [facility].
--- NOTE | 2018-06-28 19:31 | NUR ---
Patient is resting in bed on side, denies pain, no further needs identified. Call light is within reach.
[2018-06-29] VITALS (7 sets, daily range): BP systolic 95–127; BP diastolic 62–82; PULSE 69–93; TEMP 97.7–100.7
--- NOTE | 2018-06-29 05:46 | NUR ---
PT HAD UNEVENTFUL NOC. NOT SCORING ON DETOX PROTOCOL THIS SHIFT. APPEARED TO HAVE RESTED WELL. PLEASENT WITH CARES. DID HAVE SOME COMPLAINTS OF SLIGHT DIZZINESS WHEN STANDING DURING THE NOC THAT DID RESOLVE AFTER A FEW SECONDS. C/O PAIN OR NOTED N/V/D THIS SHIFT.
[2018-06-29 08:55] LABS: HEMOGLOBIN 10.9 g/dl (13.5-18.0); MEAN CELL VOLUME 97 fl (80.0-100.0); MEAN CORPUSCULAR HEMOGLOBIN 32 pg (27.0-31.0); MEAN CORPUSCULAR HGB CONC 33 g/dl (33.0-37.0); MEAN PLATELET VOLUME 10.2 fl (7.4-10.4); RED BLOOD COUNT 3.44 M/mm3 (4.20-5.60)
--- NOTE | 2018-06-29 09:05 | NUR ---
Patient sitting up in bed eating breakfast. Prior to eating, patient observed walking in [place] with physical therapy. He stated the walk felt good but did wear him out a little. Medications administered and he stated that the potassium has been making him slightly nauseated with or without food. Is hoping to speak with the provider about this before taking the medication. Denies having any pain. Call light is within reach.
[2018-06-29 09:06] LABS: ALBUMIN 3.7 gm/dL (3.5-5.0); CALCIUM 9.8 mg/dL (8.4-10.2); CREATININE, serum 0.65 mg/dL (0.66-1.25); HEMATOCRIT 33.4 % (42.0-52.0); MAGNESIUM 1.6 mg/dL (1.6-2.3); PHOSPHOROUS 4.3 mg/dL (2.5-4.5); PLATELET COUNT 242 K/mm3 (130-400); POTASSIUM 4.3 mmol/L (3.4-5.0)
[2018-06-29 13:59] LABS: BAND 6 % (0-10); HYPOCHROMIA 1+; LYMPHOCYTE 26 % (20.0-51.0); NEUTROPHILS 38 % (42.0-75.2); PLATELET ESTIMATE NORMAL (NORMAL)
--- NOTE | 2018-06-29 16:48 | NUR ---
Patient is resting in bed, head is elevated and watching TV. Denies having pain or any needs. Call light is withn reach.
[2018-06-30 02:51] VITALS: BP 115/75; PULSE 88; TEMP 98.7
--- NOTE | 2018-06-30 05:05 | NUR ---
PT HAD UNEVENTFUL NOC. NO CONSERNS OR COMPLAINTS THIS SHIFT. PLEASENT AND COOPERATIVE WITH CARES. MINIMAL SCORING ON CIWA IN EVENING THEN NO SCORING LATER ON THIS NOC. NO C/O PAIN. APPEARED TO HAVE SLEPT WELL.
--- NOTE | 2018-06-30 07:20 | NUR ---
Patient assisted to restroom, gait was steady. Did say he did get a little light headed when he stood. Was observed standing quickly, did educate patient to stand slowly the next time he gets up and we will see if this helps resolve the problem. He stated the light headedness did not last long after he stood. Patient denies having any pain this morning. Call light is within reach.
[2018-06-30 08:59] LABS: HEMOGLOBIN 10.7 g/dl (13.5-18.0); MEAN CELL VOLUME 96 fl (80.0-100.0); MEAN CORPUSCULAR HEMOGLOBIN 32 pg (27.0-31.0); MEAN CORPUSCULAR HGB CONC 33 g/dl (33.0-37.0); MEAN PLATELET VOLUME 9.8 fl (7.4-10.4); PLATELET COUNT 318 K/mm3 (130-400); RED BLOOD COUNT 3.39 M/mm3 (4.20-5.60); REDCELL DISTRIBUTION WIDTH-CV 13.9 % (11.5-14.5)
[2018-06-30 09:01] LABS: HEMATOCRIT 32.6 % (42.0-52.0)
[2018-06-30 09:08] LABS: CALCIUM 9.3 mg/dL (8.4-10.2); CREATININE, serum 0.73 mg/dL (0.66-1.25); MAGNESIUM 1.5 mg/dL (1.6-2.3); POTASSIUM 3.6 mmol/L (3.4-5.0)
[2018-06-30 10:32] LABS: EOSINOPHIL 3 % (0-4); LYMPHOCYTE 29 % (20.0-51.0); NEUTROPHILS 31 % (42.0-75.2); PLATELET ESTIMATE NORMAL (NORMAL)
--- NOTE | 2018-06-30 15:25 | NUR ---
Patient wishing to go for walk. Assisted with ambulating in [place]. Utilized gait belt, requested walker be brought with him just in case he should need it. Gait was fair. Returned to room, call light is within reach. No needs verbalized.
[2018-06-30 15:48] VITALS: BP 120/77; PULSE 87; TEMP 99.9
--- NOTE | 2018-06-30 17:15 | NUR ---
Patient is resting in bed. Evening medications administered. Denies pain, no further needs verbalized. Call light is within reach.
[2018-06-30 19:44] VITALS: BP 117/71; PULSE 82; TEMP 99.1
--- NOTE | 2018-06-30 20:30 | NUR ---
Assessment complete.patient awake,a/ox3.denies pain or discomfort at this time.VSS.breathing even and unlabored.LSCTA.patient on CIWA protocol and seizure precautions.patient has low grade fever of 99.1.patient reports appitite is not at baseline yet.Also reports not able to sleep through the night is "normal" for him.no other concerns voiced at this time.call light in reach
[2018-06-30 21:56] VITALS: BP 110/70; PULSE 73; TEMP 99.1
[2018-06-30 23:45] VITALS: BP 113/77; PULSE 76; TEMP 99.4
[2018-07-01 02:20] VITALS: BP 103/64; PULSE 72; TEMP 99.4
[2018-07-01 04:05] VITALS: BP 109/75; PULSE 71; TEMP 98.7
--- NOTE | 2018-07-01 04:17 | NUR ---
pt resting in bed at this time.scoring 0 to 1 on CIWA protocol.pt ambulated with this nurse around the unit.gait is somewhat steady.pt uses call light appropraitely.IV changed.INT to RH.denies any needs at this time.VSS.call light in reach
[2018-07-01 06:29] LABS: HEMOGLOBIN 10.7 g/dl (13.5-18.0); MEAN CELL VOLUME 97 fl (80.0-100.0); MEAN CORPUSCULAR HEMOGLOBIN 31 pg (27.0-31.0); MEAN CORPUSCULAR HGB CONC 32 g/dl (33.0-37.0); MEAN PLATELET VOLUME 9.8 fl (7.4-10.4); PLATELET COUNT 403 K/mm3 (130-400); RED BLOOD COUNT 3.42 M/mm3 (4.20-5.60); REDCELL DISTRIBUTION WIDTH-CV 13.8 % (11.5-14.5)
[2018-07-01 06:44] LABS: HEMATOCRIT 33.3 % (42.0-52.0)
[2018-07-01 06:57] LABS: ALBUMIN 3.8 gm/dL (3.5-5.0); CALCIUM 9.3 mg/dL (8.4-10.2); CREATININE, serum 0.73 mg/dL (0.66-1.25); MAGNESIUM 1.7 mg/dL (1.6-2.3); PHOSPHOROUS 4.5 mg/dL (2.5-4.5); POTASSIUM 3.7 mmol/L (3.4-5.0)
--- NOTE | 2018-07-01 07:30 | NUR ---
Patient awake and alert watching TV, medications administered. Denies having any pain at this time. Offered shower this morning and patient stated he would notify nursing staff after he eats breakfast. No other needs verbalized. Call light is within reach.
[2018-07-01 08:33] VITALS: BP 117/82; PULSE 76; TEMP 98.9
[2018-07-01] MEDS ORDERED: MULTI VITAMINS1 TAB PO (09:57)
[2018-07-01] MEDS ORDERED: FOLIC ACID 11 MG/TA1 PO (09:57)
[2018-07-01] MEDS ORDERED: NATURE'S BLEND100 M2 PO (09:57)
[2018-07-01] MEDS ORDERED: MAG-OX 400400 MG/TAB PO (10:14)
[2018-07-01] MEDS ORDERED: PROTONIX 40MG T40 MG PO (10:15)
[2018-07-01 10:33] LABS: BAND 3 % (0-10); EOSINOPHIL 1 % (0-4); LYMPHOCYTE 37 % (20.0-51.0); NEUTROPHILS 22 % (42.0-75.2)
[2018-07-01 10:34] LABS: PLATELET ESTIMATE INCREASED (NORMAL)
--- NOTE | 2018-07-01 11:47 | NUR ---
SW attended clinical rounds. Patient has been accepted to [facility] for fpc, PT and OT. SW informed patient of acceptance. [facility] will transport patient between 1 and 1:30pm today. SW will fax discharge orders once they're completed.
--- NOTE | 2018-07-01 14:36 | NUR ---
Patient discharged with to [facility] via . Facility transportation picked up patient. Belongings sent with patient.
--- NOTE | 2018-07-01 14:45 | NUR ---
Report called to Esmer at [facility]
== END 2018-07-01 14:20 | DRG 896 ==
LOC: COL.ER 00:20 → MEDICAL 01:39
PROVIDERS: Emergency Medicine; Family Medicine; Nurse Practitioner; Nurse Practitioner Family; Physician Assistant; ADMIT Internal Medicine
DX: F10.231 Alcohol dependence with withdrawal delirium (principal); E43 Unspecified severe protein-calorie malnutrition; N17.9 Acute kidney failure, unspecified; Z68.1 Body mass index [BMI] 19.9 or less, adult; E87.2 Acidosis; E87.8 Other disorders of electrolyte and fluid balance, not elsewhere classified; E86.0 Dehydration; A51.5 Early syphilis, latent; Y90.0 Blood alcohol level of less than 20 mg/100 ml; Z87.891 Personal history of nicotine dependence; E83.42 Hypomagnesemia; E83.39 Other disorders of phosphorus metabolism; K76.0 Fatty (change of) liver, not elsewhere classified; K70.9 Alcoholic liver disease, unspecified; E87.6 Hypokalemia; D69.59 Other secondary thrombocytopenia; R13.10 Dysphagia, unspecified
CPT/HCPCS: 99222-AI; 99232-AI; 99239; J2060; J2765; J3010; J3411; J3475; J7030; J7050; J7120

== ENCOUNTER → 2018-07-19 | Outpatient (CLI) | payer OTHER ==
[~2018-07-19] MED LIST changes: +MAG-OX 400400 MG/TAB PO; +NATURE'S BLEND100 M2 PO
== END ==
LOC: COL.RAD 10:00
DX: Z02.71 Encounter for disability determination (principal); M48.061 Spinal stenosis, lumbar region without neurogenic claudication

== ENCOUNTER 2019-11-25 05:38 | Emergency (ER) | payer MEDICAID ==
[2019-11-25 05:38] VITALS: PULSE 0
== END 2019-11-25 09:20 | disposition expired ==
LOC: COL.ER 05:38
DX: I46.9 Cardiac arrest, cause unspecified (principal)
CPT/HCPCS: J0171